=== PATIENT | male | born 1990 | race Caucasian/White ===

== ENCOUNTER 2020-09-01 10:29 | Day surgery (SDC) | payer BC ==
[~2020-09-01] VITALS: Ht 167.6 cm; Wt 84.4 kg
[2020-09-01] VITALS (7 sets, daily range): BP systolic 126–138; BP diastolic 80–87; PULSE 74–102; TEMP 98–98.4
[~2020-09-01 10:29] MED LIST: LACRI-LUBE1 OIN OD; NORCO 325 MG-51 TAB PO; PREDNISONE20 MG PO; VALTREX1 GM PO
[2020-09-01] MEDS ORDERED: MOTRIN 200200 MG/TAB PO (12:09)
[2020-09-01] MEDS ORDERED: NORCO 325 MG-51 TAB PO (13:36)
--- NOTE | 2020-09-01 14:25 | NUR ---
Patient returns to room 6 per cart from PACU accompanied by Bev MILLS and is awake and alert. Denies pain or nausea. Temp 98.3 and room air sats 98%. Bandaids x3 on abdomen dry. IV fluids infusing and site is free of redness. Taking sips of Sprite. Siderails up x2 and call light in reach. Allowed to rest.
--- NOTE | 2020-09-01 14:40 | NUR ---
Room air sats 97%. Sipping on Sprite. Continues to deny pain or nausea.
--- NOTE | 2020-09-01 14:55 | NUR ---
Continues to rest and denies pain or nausea.
--- NOTE | 2020-09-01 15:10 | NUR ---
Eating toast and sipping on Sprite. Denies nausea.
--- NOTE | 2020-09-01 15:50 | NUR ---
Given [place] 5mg for pain at 410. Tolerated toast and Sprite.
--- NOTE | 2020-09-01 16:11 | NUR ---
IV discontinued and site is free of redness. Given dismissal instructions and voices understanding of these. [facility] [place] [facility]
--- NOTE | 2020-09-01 16:14 | NUR ---
Patient dismissed to home driven by friend and taken to the front door by wheelchair and assisted into vehicle by this RN with instructions in hand.
== END 2020-09-01 16:14 | disposition home or self-care (01) ==
LOC: SDCO 10:29
DX: K80.10 Calculus of gallbladder with chronic cholecystitis without obstruction (principal); Z87.891 Personal history of nicotine dependence; F32.9 Major depressive disorder, single episode, unspecified; F41.9 Anxiety disorder, unspecified
CPT/HCPCS: J1885; J2405; J2704; J3010; J7120

== ENCOUNTER 2021-06-26 21:23 | Emergency (ER) | payer SELFPAY ==
[~2021-06-26] VITALS: Ht 167.6 cm; Wt 84.1 kg
[~2021-06-26 21:23] MED LIST changes: +MOTRIN 200200 MG/TAB PO
[2021-06-26 21:57] VITALS: TEMP 98.9
[2021-06-26] MEDS ORDERED: ESTRACE2 MG PO (22:45)
[2021-06-26] MEDS ORDERED: LEXAPRO20 MG PO (22:45)
[2021-06-26] MEDS ORDERED: ALDACTONE 100M100 MG PO (22:45)
[2021-06-26] MEDS ORDERED: ATARAX 10MG10 MG/TAB PO (22:46)
[2021-06-26 23:53] VITALS: BP 124/70; PULSE 87
== END 2021-06-26 23:54 | disposition home or self-care (01) ==
LOC: COL.ER 21:23
DX: F12.129 Cannabis abuse with intoxication, unspecified (principal); F41.9 Anxiety disorder, unspecified; F32.9 Major depressive disorder, single episode, unspecified; Z79.899 Other long term (current) drug therapy